=== PATIENT | female | born 1960 | race Caucasian/White ===

== ENCOUNTER 2018-04-03 01:30 | Inpatient (IN) | payer SELFPAY ==
[~2018-04-03] VITALS: Ht 170.2 cm; Wt 107.1 kg
--- OUTSIDE RECORDS SUMMARY | 2018-04-03 04:03 | XMS REPORT ---
Author Author BART ABREU [facility] [place] eClinicalWorks Address Unknown Phone Unavailable Care Team Providers Care Mobile Marketing Manager Name Role Phone BART ABREU CP Unavailable Allergies, Adverse Reactions, Alerts Substance Reaction Event Type N.K.D.A. Info Not Available Non Drug Allergy Problems Problem Type Condition Code Onset Dates Condition Status Assessment Left shoulder pain M25.512 Active Medications Medication Code System Code Instructions Start Date End Date Status Dosage Cranberry [facility] [id number] not defined Multivitamin [facility] [id number] not defined Procedures Procedure Coding System Code Date X-RAY EXAM OF SHOULDER CPT-4 53164 2015 Office Visit, New Pt., Level 3 CPT-4 91423 2015 Vital Signs Date/Time: 2015 Temperature 97.8 F Weight 205.2 lbs Height 68 in BMI 31.20 Index Blood Pressure Diastolic 78 mmHg Blood Pressure Systolic 124 mmHg Cardiac Monitoring Heart Rate 72 bpm Results Name Result Date Reference Range Unit Abnormality Flag Xray : Shoulder, Left 2 view (IN HOUSE) Summary Purpose eClinicalWorks Submission
--- OUTSIDE RECORDS SUMMARY | 2018-04-03 04:03 | XMS REPORT ---
Author Author BART ABREU Organization e[employer] Address Unknown Phone Unavailable Care Team Providers Care Apartment Leasing Agent Name Role Phone BART ABREU CP Unavailable Allergies No Known Allergies Problems No Known Problems Medications No Known Medications Results No Known Results Summary Purpose eClinicalWorks Submission
[2018-04-03] MEDS ORDERED: D5 LR IV SOLUTION 1,000 ML IV ONE (04:25)
[2018-04-03] MEDS ORDERED: fentaNYL INJECTION 100 MCG/2 ML AMP ONE (04:26)
[2018-04-03] MEDS: D5 LR IV SOLUTION 1,000 ML IV SCH ×2 (04:48→12:25)
[2018-04-03] MEDS: fentaNYL INJECTION 100 MCG/2 ML AMP IVP PRN ×4 (04:48→12:02)
[2018-04-03 07:57] VITALS: BP 120/61
--- NOTE | 2018-04-03 09:48 | Short Stay Summary-Hospitalist ---
History of Present Illness HPI/Chief Complaint Pt is a 57yoCF with a PMH of OAB who was admitted to hospital as a transfer from [facility] due to tibia/fibula fracture. She states that she was walking down her stairs and tripped over her feet. Her right foot was stuck under the stairs and she fell on her right shoulder as well. She knew she broke her ankle when she feel because she heard it crack and thought it looked deformed. Her wrapped her in a tarp and drug her to their car and brought her to the ER for evaluation. She was found to have multiple fractures and was transferred here for orthopedic evaluation. She denies use of any blood thinners, LOC, or hitting her head. Her only complaint currently is her pain. Source: patient Date Seen 04/03/18 Time Seen by Provider: 09:00 Attending Physician Ivone Avilez MD PCP Lori Arroyo MD Referring Physician Date of Admission Apr 03, 2018 at 03:15 Home Medications & Allergies Home Medications Reviewed patient Home Medication Reconciliation performed by pharmacy medication reconciliations ultrasound technician and/or nursing. Patients Allergies have been reviewed. Allergies Allergies Coded Allergies Penicillins (Verified Allergy, Mild, Hives, 04/03/18) Per patient report Past Wsepusg-[id number]-[id number] Hx Past Med/Social Hx: Reviewed Nursing Past Med/Soc Hx Patient Social History Alcohol Use: Rarely Uses Number of Drinks Today: 0 Alcohol Beverage of Choice: Beer Recreational Drug Use: No Smoking Status: Never a Smoker Physical Abuse Screen: No Sexual Abuse: No Recent Foreign Travel: No Contact w/other who traveled: No Recent Hopitalizations: No Recent Infectious Disease Expo: No Seasonal Allergies Seasonal Allergies: Yes Past Medical History Currently Using CPAP: No Currently Using BIPAP: No Sexually Transmitted Disease: No HIV/AIDS: No Musculoskeletal: Fractures Are Your Blood Sugars Over 250: No Loss of Vision: Denies Hearing Impairment: Denies History of Blood Disorders: No Adverse Reaction to Blood Dhillon: No Family History Reviewed Nursing Family Hx Patient reports no known family medical history. COPD, Diabetes Parkinson's Dementia- Brother Review of Systems Constitutional: No chills, No fever EENTM: No blurred vision, No double vision, No nose congestion, No throat pain Respiratory: No cough, No dyspnea on exertion, No short of breath Cardiovascular: No chest pain, No edema, No palpitations Gastrointestinal: No abdominal pain, No constipation, No diarrhea, No nausea, No vomiting Genitourinary: No dysuria, No frequency Musculoskeletal: see HPI, joint pain; No muscle pain Skin: No lesions, No rash Psychiatric/Neurological: Denies Headache, Denies Numbness, Denies Tingling Physical Exam Physical Exam Vital Signs Vital Signs - First Documented 04/03/18 07:57 Temp 98.9 Pulse 76 Resp 20 B/P (MAP) 120/61 (80) Pulse Ox 95 O2 Delivery Room Air Capillary Refill : Less Than 3 Seconds General Appearance: No Apparent Distress, WD/WN HEENT: PERRL/EOMI, Moist Mucous Membranes Neck: Non Tender, Supple Respiratory: Lungs Clear, No Respiratory Distress Cardiovascular: Regular Rate, Rhythm, No Murmur Gastrointestinal: Normal Bowel Sounds, Non Tender, Soft Extremity: Normal Capillary Refill, Other (right leg wrapped in catrina bandage and overlying pressure reducing wrap, swelling around ankle) Neurologic/Psychiatric: Alert, Oriented x3, Normal Mood/Affect Skin: Normal Color, Warm/Dry Results Results/Procedures Labs Patient resulted labs reviewed. Imaging: Reviewed Imaging Films, Reviewed Imaging Report Short Stay Diagnosis Discharge Diagnosis-Short Stay Admission Diagnosis Proximal and distal fibula fracture, tibial plateau fracture, humerus fracture Final Discharge Diagnosis Above Conclusion Plan I discussed this at length with Dr Khan and review the images and her need for higher level of care I called and discussed with Orthopedic Surgeon apprenticeship consultant at [facility] who believed that she needed a higher level of care than they could provide Discussed with patient who preferred [facility] for tertiary center referral Discussed case with Dr Lakhani at [facility] who accepted patient Arrangements made for transfer, patient agreeable to this plan Continue Fentanyl for pain Clinical Quality Measures DVT/VTE Risk/Contraindication: Risk Factor Score Per Nursin RFS Level Per Nursing on Admit: 4+=Very High CORY FISH MD Apr 03, 2018 09:48
[2018-04-03] MEDS ORDERED: ASCO-262 PO (11:07)
[2018-04-03] MEDS ORDERED: CRAN400T3 PO (11:07)
[2018-04-03] MEDS ORDERED: NAPR220T66 PO (11:07)
[2018-04-03] MEDS ORDERED: MULT-35 PO (11:07)
[2018-04-03] MEDS ORDERED: GABA-488 PO (11:10)
[2018-04-03] MEDS ORDERED: CYCL10TA9 PO (11:10)
[2018-04-03 12:00] VITALS: BP 140/70
[2018-04-03 12:50] VITALS: BP 140/70
== END 2018-04-03 12:50 | disposition short-term general hospital (02) | DRG 563 ==
LOC: 4TH 03:15
PROVIDERS: ADMIT Internal Medicine; ATTEND Internal Medicine
DX: S82.831A Other fracture of upper and lower end of right fibula, initial encounter for closed fracture (principal); S42.91XA Fracture of right shoulder girdle, part unspecified, initial encounter for closed fracture; S82.101A Unspecified fracture of upper end of right tibia, initial encounter for closed fracture; W10.9XXA Fall (on) (from) unspecified stairs and steps, initial encounter